=== PATIENT | male | born 1955 | race Two or more races ===

== ENCOUNTER 2017-11-19 10:50 | Outpatient (CLI) | payer OTHER ==
[~2017-11-19 10:50] MED LIST: ZYRTEC10 MG PO
== END 2017-11-19 13:50 | disposition home or self-care (01) ==
LOC: RAD 10:50
DX: R05 Cough (principal)

== ENCOUNTER 2017-11-19 11:48 | Outpatient (CLI) | payer OTHER | END 2017-11-19 11:58 | disposition home or self-care (01) | LOC: LAB 11:48 | DX: R50.9 Fever, unspecified (principal); J11.1 Influenza due to unidentified influenza virus with other respiratory manifestations ==

== ENCOUNTER 2019-03-23 11:02 | Outpatient (CLI) | payer OTHER | END 2019-03-23 13:27 | disposition home or self-care (01) | LOC: LAB 11:02 | DX: J20.8 Acute bronchitis due to other specified organisms (principal) ==

== ENCOUNTER 2019-05-05 09:25 | Inpatient (IN) | payer OTHER ==
[~2019-05-05] VITALS: Ht 167.6 cm; Wt 86.2 kg
[2019-05-14] MEDS ORDERED: INTESTINEX680 M1 PO (14:32)
[2019-05-14] MEDS ORDERED: PREDNISONE10 MG PO (14:32)
[2019-05-14] MEDS ORDERED: PROTONIX40 M1 PO (14:33)
== END 2019-05-14 14:53 | disposition home or self-care (01) | DRG 197 ==
LOC: ER 09:25 → SEC-K 18:37 → MEDJ 18:37
PROVIDERS: ADMIT Internal Medicine
PROC: BB24ZZZ Computerized Tomography (CT Scan) of Bilateral Lungs (ICD-10-PCS; principal; 2019-05-05)
PROC: 3E0F7GC Introduction of Other Therapeutic Substance into Respiratory Tract, Via Natural or Artificial Opening (ICD-10-PCS; 2019-05-05)
PROC: 4A033R1 Measurement of Arterial Saturation, Peripheral, Percutaneous Approach (ICD-10-PCS; 2019-05-05)
PROC: BW40ZZZ Ultrasonography of Abdomen (ICD-10-PCS; 2019-05-06)
PROC: B246ZZZ Ultrasonography of Right and Left Heart (ICD-10-PCS; 2019-05-06)
DX: J67.8 Hypersensitivity pneumonitis due to other organic dusts (principal); I31.3 Pericardial effusion (noninflammatory); R09.02 Hypoxemia; J09.X2 Influenza due to identified novel influenza A virus with other respiratory manifestations; I34.0 Nonrheumatic mitral (valve) insufficiency; I07.1 Rheumatic tricuspid insufficiency; I35.8 Other nonrheumatic aortic valve disorders